=== PATIENT | female | born 1980 | race Hispanic/Latino ===

== ENCOUNTER 2017-12-05 22:18 | Emergency (ER) | payer SELFPAY ==
[2017-12-05 22:25] VITALS: RESP 16; O2SAT 100
--- NOTE | 2017-12-06 00:02 | ED PDOC ---
HPI: Abdomen Time Seen by Provider: 12/05/17 23:28 Chief Complaint (Nursing): GI Problem History Per: Patient History/Exam Limitations: no limitations Onset/Duration Of Symptoms: Days Outside of [place] travel?: No Current Symptoms Are (Timing): Better Additional Complaint(s): Hx of long-standing constipation p/w constipation and rectal pain, states that today while trying to have a BM, she states she took over an hour in the bathroom and felt the sensation of her "insides coming out". States she has no abdominal pain, and earlier was having difficulty walking but now is feeling better. States she has not used senna in over 2 weeks. Denies nausea, vomiting. No rectal bleeding/dark stools. No fevers/chills. No surgical hx. No narcotics. Past Medical History Reviewed: Historical Data, Nursing Documentation, Vital Signs Vital Signs: Last Vital Signs Temp 97.8 F 12/05/17 22:21 Pulse 83 12/05/17 22:21 Resp 16 12/05/17 22:21 BP 115/81 12/05/17 22:21 Pulse Ox 100 12/06/17 00:03 - Family History Family History: States: Unknown Family Hx - Allergies Allergies/Adverse Reactions: Allergies Allergy/AdvReac Type Severity Reaction Status Date / Time No Known Allergies Allergy Verified 12/05/17 22:21 Review of Systems ROS Statement: Except As Marked, All Systems Reviewed And Found Negative Gastrointestinal: Positive for: Constipation, Rectal Pain Physical Exam - Reviewed Nursing Documentation Reviewed: Yes - Physical Exam Appears: Positive for: Well, Non-toxic, No Acute Distress Head Exam: Positive for: ATRAUMATIC, NORMAL INSPECTION, NORMOCEPHALIC Skin: Positive for: Normal Color, Warm, DRY Eye Exam: Positive for: EOMI, Normal appearance, PERRL ENT: Positive for: Normal ENT Inspection Neck: Positive for: Normal, Painless ROM Cardiovascular/Chest: Positive for: Regular Rate, Rhythm Respiratory: Positive for: CNT, Normal Breath Sounds Gastrointestinal/Abdominal: Positive for: Normal Exam, Soft Back: Positive for: Normal Inspection Rectal: Positive for: Normal Exam, Rectal Tone Is: (normal), Other (no prolapse , normal colored stool, hard stool felt in vault (nurse Pat Lisa house wirer helper for exam)). Negative for: Black Stool, Blood Streaked Stool, Hemorrhoids, Mass , Tenderness Extremity: Positive for: Normal ROM Neurologic/Psych: Positive for: Alert, Oriented - ECG O2 Sat by Pulse Oximetry: 100 Medical Decision Making Medical Decision MakinPM A/P: Hx of constipation p/w constipation -patient possibly has fecal impaction -will try lactulose/fleet -re-eval post meds 130AM Patient had large BM and is feeling much improved Will refer to GI Return precautions discsused Disposition - Clinical Impression Clinical Impression: Constipation - Patient ED Disposition Is Patient to be Admitted: No - Disposition Referrals: Kp Castro MD [Staff Provider] - Disposition: Routine/Home Disposition Time: 01:33 Condition: IMPROVED Instructions: Constipation in Adults Forms: [facility] (Bel[place]ian)
[2017-12-06 01:51] VITALS: BP 98/70; PULSE 86; TEMP 98
== END 2017-12-06 01:51 | disposition home or self-care (01) ==
LOC: H.ER 22:18
DX: K59.00 Constipation, unspecified (principal)
CPT/HCPCS: 99283; G0328